=== PATIENT | female | born 1980 | race Caucasian/White ===

== ENCOUNTER 2023-02-13 16:33 | Emergency (ER) | payer MEDICAID, OTHER ==
[~2023-02-13] VITALS: Ht 167.6 cm; Wt 52.2 kg
[2023-02-13 18:18] LABS: *BILIRUBIN,URIN NEGATIVE (NEGATIVE); *BLOOD, URINE 1+ (NEGATIVE); *CLARITY,URINE CLOUDY (CLEAR); *COLOR,URINE YELLOW (YELLOW); *KETONES,URINE NEGATIVE (NEGATIVE); *PROTEIN,URINE 2+ (NEGATIVE); *UROBILINOGEN,URINE 0.2 E.U./dl (NORMAL); LEUKOCYTE ESTERASE ,URINE 1+ (NEGATIVE); NITRITE, URINE NEGATIVE (NEGATIVE); UGLUCOSE NEGATIVE (NEGATIVE)
[2023-02-13 18:19] LABS: *URINE HCG, QUAL NEGATIVE (NEGATIVE)
[2023-02-13] MEDS ORDERED: NITR-84 PO (18:34)
[2023-02-13] MEDS ORDERED: PHENAZOPYRIDINE HCL 100 MG TABLET ONE (18:37)
[2023-02-13] MEDS ORDERED: NITROFURANTOIN/NITROFURAN MAC 100 MG CAPSULE PO ONE ×2 (18:37→18:45)
[2023-02-13] MEDS ORDERED: FLUCONAZOLE 100 MG TABLET ONE (18:38)
[2023-02-13] MEDS ORDERED: PHENAZOPYRIDINE HCL 100 MG TABLET PO ONE (18:45)
[2023-02-13] MEDS ORDERED: FLUCONAZOLE 100 MG TABLET PO ONE (18:45)
[2023-02-13 18:51] VITALS: BP 121/77; TEMP 98.5; O2SAT 98
[2023-02-15 04:07] LABS: *TRIC.VAG. NAA Negative (Negative)
[2023-02-15 16:06] LABS: *CHLAMYDIA NAA Negative (Negative); *GC NAA Negative (Negative)
== END 2023-02-13 18:51 | disposition home or self-care (01) ==
LOC: ER 16:37
DX: R30.0 Dysuria (principal); Z88.2 Allergy status to sulfonamides; Z79.899 Other long term (current) drug therapy
CPT/HCPCS: 84703; 87491; A4606; A4663